=== PATIENT | female | born 1980 ===

== ENCOUNTER 2019-12-22 06:46 | Day surgery (SDC) | payer OTHER ==
[2019-12-23] MEDS ORDERED: LEVO-T137 MCG PO (07:58)
== END 2019-12-23 10:23 | disposition home or self-care (01) ==
LOC: CIR.AMB 06:46 → O/R 20:46 → CIR.AMB 12-23 10:23
PROVIDERS: ATTEND Obstetrics & Gynecology
DX: Z30.2 Encounter for sterilization (principal); Z30.432 Encounter for removal of intrauterine contraceptive device